=== PATIENT | female | born 1985 | race Caucasian/White ===

== ENCOUNTER 2018-03-22 18:12 | Inpatient (IN) | payer OTHER ==
[~2018-03-22] VITALS: Ht 165.1 cm; Wt 86.2 kg
[~2018-03-22 18:12] MED LIST: FOLIC ACID1 MG; PANADOL CHILDRE80 MG; PEPCID40 MG PO; PHENERGAN25 MG PO; PRENATAL CAPLE1 EACH PO; ROBITUSSIN COU118 M9
== END 2018-04-15 13:36 | DRG 767 ==
LOC: LDR 04-13 10:17 → SURG-SUITE 04-13 10:17 → OB/GYN 04-25 13:00
PROVIDERS: Obstetrics & Gynecology
PROC: 0UB70ZZ Excision of Bilateral Fallopian Tubes, Open Approach (ICD-10-PCS; 2018-04-13)
PROC: 10E0XZZ Delivery of Products of Conception, External Approach (ICD-10-PCS; 2018-04-13)
PROC: 4A1HXCZ Monitoring of Products of Conception, Cardiac Rate, External Approach (ICD-10-PCS; 2018-04-13)
PROC: 0KQM0ZZ Repair Perineum Muscle, Open Approach (ICD-10-PCS; principal; 2018-04-13 17:00)
DX: O70.1 Second degree perineal laceration during delivery (principal); Z37.0 Single live birth; Z30.2 Encounter for sterilization; Z3A.38 38 weeks gestation of pregnancy

== ENCOUNTER → 2018-04-12 | Outpatient (CLI) | payer OTHER | END | disposition home or self-care (01) | LOC: NST 13:40 | DX: Z34.83 Encounter for supervision of other normal pregnancy, third trimester (principal) ==